=== PATIENT | female | born 1980 | race Two or more races ===

== ENCOUNTER → 2021-08-02 15:08 | Outpatient (CLI) | payer OTHER, SELFPAY ==
--- NOTE | ~2021-08-02 | DEXA_ITS ---
Bone Density Report Name: JOVI VAUGHAN Age: 41 Sex: Female Ethnicity: White Date of : 1980 Indication: osteopenia; monitoring treatment; inflammatory bowel disease; Referring Provider: BestDaina Study: Bone densitometry was performed. Exam Date: August 02, 2021 Accession number: [id number] Bone Density: Region BMD T-score Z-score Classification AP Spine (L1-L4) 0.984 -0.6 -0.3 Normal Femoral Neck (Left) 0.665 -1.7 -1.3 Osteopenia Total Hip (Left) 0.725 -1.8 -1.6 Osteopenia Femoral Neck (Right) 0.733 -1.0 -0.7 Normal Total Hip (Right) 0.795 -1.2 -1.0 Osteopenia Total Hip Mean 0.760 -1.5 -1.3 Osteopenia World Health Organization criteria for BMD impression classify patients as: Normal (T-score at or above -1.0), Osteopenia (T-score between -1.0 and -2.5), or Osteoporosis (T-score at or below -2.5). 10-year Fracture Risk: FRAX not reported because: Premenopausal woman Treated for osteoporosis Previous Exams: Region Exam Age BMD T-score BMD Change BMD Change Date g/cm2 vs Baseline vs Previous AP Spine(L1-L4) 08/02/2021 41 0.984 -0.6 0.311* 0.158* 12/02/2016 36 0.826 -2.0 0.153* 0.113* 07/14/2014 34 0.713 -3.0 0.040* 0.040* 07/13/2012 32 0.673 -3.4 Total Hip(Left) 08/02/2021 41 0.725 -1.8 0.159* 0.074* 12/02/2016 36 0.650 -2.4 0.085* 0.041* 07/14/2014 34 0.609 -2.7 0.044* 0.044* 07/13/2012 32 0.565 -3.1 Total Hip(Right) 08/02/2021 41 0.795 -1.2 0.183* 0.088* 12/02/2016 36 0.707 -1.9 0.095* 0.066* 07/14/2014 34 0.641 -2.5 0.029* 0.029* 07/13/2012 32 0.612 -2.7 *Denotes significance at 95% confidence level, LSC for AP Spine = 0.022 g/cm2, LSC for Total Hip = 0.027 g/cm2 Clinical Information Provided by Patient: Is being treated for osteoporosis Has used the following medications: Fosamax (i.e. alendronate), HRT (i.e. estrogen/hormone therapy), Vitamin D Has the following medical conditions: Inflammatory bowel diseases, TURNERS SYNDROME Patient maximum height was 58.5 Drinks caffeinated beverages Onset of menses at age 15 Premenopausal Number of children 0 Impression: The patient's bone mass is within expected range for age, gender and ethnicity. No significant bone loss was observed. Discussion: PATIENT UNDER TREATM
== END ==
PROVIDERS: Visit Provider Internal Medicine Endocrinology, Diabetes & Metabolism
DX: M81.0 Age-related osteoporosis without current pathological fracture (principal); M85.852 Other specified disorders of bone density and structure, left thigh; M85.851 Other specified disorders of bone density and structure, right thigh
CPT/HCPCS: 77080

== ENCOUNTER 2023-03-29 09:37 | Emergency (ER) | payer OTHER, SELFPAY ==
[2023-03-29 10:01] VITALS: BP 104/77; PULSE 87; RESP 16; TEMP 36; O2SAT 100
--- NOTE | 2023-03-29 10:08 | ED.URI ---
HPI - URI/Sore Throat General Chief Complaint: Upper Respiratory Infection Stated Complaint: COUGH/CONGESTION/RUNNY NOSE/FEVER Source: patient and RN notes reviewed Mode of arrival: ambulatory Limitations: no limitations History of Present Illness HPI Narrative: 42 y/o female presented for c/o headache, sinus pressure/congestion, cough, fever. Onset 4 days. Woke this morning with sore throat. Denies sob, wheezing, n/v/d. Taking multiple otc meds for symptoms. MD elicited complaint: cough Related Data Home Medications Medication Instructions Recorded Confirmed adalimumab 40 mg/0.4 mL 40 mg subcut USEASDIRECTD 03/29/23 03/29/23 subcutaneous pen kit (Humira(CF) Pen) aspirin 81 mg tablet,delayed 81 mg PO DAILY 03/29/23 03/29/23 release cholestyramine (with sugar) 4 gram 1 ea PO DAILY 03/29/23 03/29/23 oral powder cyanocobalamin (vitamin B-12) 1 tablet PO USEASDIRECTD 03/29/23 03/29/23 ergocalciferol (vitamin D2) 1,250 1,250 mcg PO WEEKLY 03/29/23 03/29/23 mcg (50,000 unit) capsule estradiol-norethindrone acet 1 1 tablet PO DAILY 03/29/23 03/29/23 mg-0.5 mg tablet losartan 25 mg tablet 25 mg PO DAILY 03/29/23 03/29/23 metoprolol succinate 25 mg 25 mg PO DAILY 03/29/23 03/29/23 tablet,extended release 24 hr multivitamin with minerals-folic 1 tablet PO DAILY 03/29/23 03/29/23 acid 0.4 mg tablet sertraline 50 mg tablet 50 mg PO DAILY 03/29/23 03/29/23 ursodiol 300 mg capsule 300 mg PO USEASDIRECTD 03/29/23 03/29/23 Allergies Allergy/AdvReac Type Severity Reaction Status Date / Time No Known Allergies Allergy Verified 03/29/23 10:00 Review of Systems Review of Systems: CONSTITUTIONAL: Endorses malaise, fever EYES: Denies visual changes, redness, or discharge ENT: Reports rhinorrhea, congestion, sore throat CARDIOVASCULAR: Denies chest pain, palpitations, edema RESPIRATORY: Reports cough, post nasal drainage. Denies dyspnea GASTROINTESTINAL: Denies abdominal pain, nausea, vomiting, diarrhea SKIN: Denies rash or itching MUSCULOSKELETAL: denies myalgia NEUROLOGIC: Denies headache [facility] Past Medical History Medical History (Updated 03/29/23 @ 10:18 by Gisel Santizo APRN) Crohn disease HTN (hypertension) Boykin syndrome Surgical History Surgical History (Updated 03/29/23 @ 10:16 by Gisle Santizo APRN) History of colon resection Exam Narrative: GENERAL: Mildly ill-appearing, nontoxic no acute distress. HEAD: Normocephalic EYES: PERRLA, conjunctivae clear ENT: Mucous membranes moist. TMs pearly babcock with dull light reflex bilaterally; no tragal tenderness. Oropharynx mildly erythematous without lesions or exudate, no drooling, no hoarseness, no trismus, uvula midline. No tripod positioning, muffled voice, soft palate or pharyngeal wall bulging NECK: Supple. No lymphadenopathy CHEST: Clear to auscultation, breath sounds equal. No wheezing, rhonchi, rales, or stridor. No respiratory distress, speaks in full sentences. HEART: Regular rate and rhythm. No murmur heard. SKIN: Warm, dry, no rash. NEURO: Alert and oriented x3. PSYCH: Normal mood and affect Course Course Emergency Course: Patient is aware of diagnosis, understands and agrees to treatment plan. Anticipatory guidance given. Patient agrees to follow-up as directed and is aware of reasons to seek care at the emergency department. Portions of this record may have been created with voice recognition software Level of Care: Express Care Visit Vital Signs Vital signs: Vital Signs Temperature 96.8 F L 03/29/23 10:01 Pulse Rate 87 03/29/23 10:01 Respiratory Rate 16 03/29/23 10:01 Blood Pressure 104/77 03/29/23 10:01 Pulse Oximetry 100 03/29/23 10:01 Temperature 96.8 F L 03/29/23 10:01 Pulse Rate 87 03/29/23 10:01 Respiratory Rate 16 03/29/23 10:01 Blood Pressure 104/77 03/29/23 10:01 Pulse Oximetry 100 03/29/23 10:01 reviewed MDM - URI/Sore Throat MDM Narrative Medi
[2023-03-29 10:10] VITALS: BP 104/77; PULSE 87; RESP 16; TEMP 36; O2SAT 100
== END 2023-03-29 10:30 | disposition home or self-care (01) ==
PROVIDERS: Emergency Provider Nurse Practitioner Family
DX: U07.1 COVID-19 (principal); K50.90 Crohn's disease, unspecified, without complications; I10 Essential (primary) hypertension; Q96.9 Turner's syndrome, unspecified
CPT/HCPCS: 87081; 87426; 87804; 87880; 99203; C9803; G0463

== ENCOUNTER 2023-05-28 08:03 | Emergency (ER) | payer OTHER, SELFPAY ==
[2023-05-28 08:10] VITALS: BP 106/68; PULSE 97; RESP 16; TEMP 36.6; O2SAT 98
[2023-05-28 08:16] VITALS: BP 106/68; PULSE 97; RESP 16; TEMP 36.6; O2SAT 98
--- NOTE | 2023-05-28 08:34 | ED.URI ---
HPI - URI/Sore Throat General Chief Complaint: Upper Respiratory Infection Stated Complaint: Cough;Headache Time Seen by Provider: 05/28/23 08:20 Source: patient and RN notes reviewed Mode of arrival: ambulatory Limitations: no limitations History of Present Illness HPI Narrative: Patient presents today with 1+ week history of nasal congestion, right ear pressure, cough, sinus pressure, headache. Denies shortness of breath or fever. Currently rates her pain 6/10. She has tried Mucinex, Sudafed, Delsym, Tylenol with some intermittent relief. Patient takes Humira for Crohn's disease. Related Data Home Medications Medication Instructions Recorded Confirmed adalimumab 40 mg/0.4 mL 40 mg subcut USEASDIRECTD 03/29/23 05/28/23 subcutaneous pen kit (Humira(CF) Pen) aspirin 81 mg tablet,delayed 81 mg PO DAILY 03/29/23 05/28/23 release cholestyramine (with sugar) 4 gram 1 ea PO DAILY 03/29/23 05/28/23 oral powder cyanocobalamin (vitamin B-12) 1 tablet PO USEASDIRECTD 03/29/23 05/28/23 ergocalciferol (vitamin D2) 1,250 1,250 mcg PO WEEKLY 03/29/23 05/28/23 mcg (50,000 unit) capsule estradiol-norethindrone acet 1 1 tablet PO DAILY 03/29/23 05/28/23 mg-0.5 mg tablet losartan 25 mg tablet 25 mg PO DAILY 03/29/23 05/28/23 metoprolol succinate 25 mg 25 mg PO DAILY 03/29/23 05/28/23 tablet,extended release 24 hr multivitamin with minerals-folic 1 tablet PO DAILY 03/29/23 05/28/23 acid 0.4 mg tablet sertraline 50 mg tablet 50 mg PO DAILY 03/29/23 05/28/23 ursodiol 300 mg capsule 300 mg PO USEASDIRECTD 03/29/23 05/28/23 Allergies Allergy/AdvReac Type Severity Reaction Status Date / Time No Known Allergies Allergy Verified 05/28/23 08:15 Review of Systems Review of Systems: CONSTITUTIONAL: Denies body aches, fever, chills, or sweats. EYES: Denies visual changes, redness, or discharge. ENT: Denies rhinorrhea, sore throat. + congestion, right ear pressure, sinus pressure CARDIOVASCULAR: Denies chest pain, palpitations, or edema. RESPIRATORY: Denies dyspnea.+ cough GASTROINTESTINAL: Denies abdominal pain, nausea, vomiting, or diarrhea. GENITOURINARY: Denies dysuria or hematuria. SKIN: Denies rash, itching, or wounds. MUSCULOSKELETAL: Denies back pain, joint pain, or myalgia. NEUROLOGIC: Denies numbness, tingling, or weakness.+ headache PSYCH: Denies depression or anxiety. PMFSH Past Medical History Medical History Crohn disease HTN (hypertension) Boykin syndrome Surgical History Surgical History History of colon resection Comments At time of signature, I have reviewed and agree with nursing past medical, surgical, social and family history unless otherwise noted. Please see nursing chart for further information. There is no relevant family history pertinent to the presenting complaint Exam Narrative: GENERAL: Well-appearing, well-nourished, and in no acute distress. HEAD: Normocephalic, atraumatic. EYES: EOMI. No redness or drainage. Conjunctivae normal. ENT: Mucous membranes pink and moist. Nares congested. No rhinorrhea. Bilateral nasal turbinates are erythematous and edematous. Bilateral maxillary sinus tenderness. TMs normal bilaterally. Throat normal. Uvula midline. NECK: Normal AROM. Supple. No lymphadenopathy. CHEST: No respiratory distress. Clear to auscultation. HEART: Regular rate and rhythm. No murmur appreciated. EXTREMITIES: Normal range of motion. No edema. SKIN: Warm, dry, no rash. Capillary refill normal. Normal skin turgor. NEURO: No focal deficits. Alert and oriented x3. Gait steady. PSYCH: Normal affect. No signs of depression or anxiety. Course Course Level of Care: Express Care Visit Vital Signs Vital signs: Vital Signs Temperature 97.8 F 05/28/23 08:10 Pulse Rate 97 05/28/23 08:10 Respiratory Rate 16 05/28/23 08:
== END 2023-05-28 08:41 | disposition home or self-care (01) ==
PROVIDERS: Emergency Provider Nurse Practitioner
DX: J01.00 Acute maxillary sinusitis, unspecified (principal); K50.90 Crohn's disease, unspecified, without complications; I10 Essential (primary) hypertension; Q87.19 Other congenital malformation syndromes predominantly associated with short stature; Z79.82 Long term (current) use of aspirin
CPT/HCPCS: 99213; G0463

== ENCOUNTER 2024-04-01 09:55 | Outpatient (CLI) | payer OTHER, SELFPAY ==
--- NOTE | ~2024-04-01 | CT_ITS ---
CT of the Abdomen and Pelvis: Indication: Crohn's disease Technique: 2.5 mm axial scans were obtained through the abdomen and pelvis following intravenous adm inistration of 100 cc of Omnipaque 350. Dose reduction technique was used on this scan by utilizing a utomated exposure control and iterative reconstruction technique. The dose-length product (DLP) was 3 97.81 mGy-cm. Findings: Scans through the lung bases are unremarkable. There is diffuse hepatic steatosis. The spleen, pancreas, gallbladder, adrenals and kidneys are withi n normal limits. No evidence of aortic aneurysm. No lymphadenopathy. No bowel obstruction or bowel wall thickening. Evidence of prior partial right colectomy with enteroc olonic anastomosis present.. Images through the pelvis were performed. Urinary bladder unremarkable. No pelvic mass seen. No ascit es. Kyphosis of the thoracic spine noted with degenerative disc disease throughout. Impression: No acute abnormalities seen. Postoperative changes of bowel, as above. Diffuse hepatic steatosis. Reviewed, dictated and finalized at location . [employer] Impression: No acute abnormalities seen. Postoperative changes of bowel, as above. Diffuse hepatic steatosis.
[2024-04-01 11:24] LABS: Estimated Glomerular Filt Rate > 60
== END 2024-04-01 09:56 | disposition home or self-care (01) ==
DX: K50.118 Crohn's disease of large intestine with other complication (principal); K76.0 Fatty (change of) liver, not elsewhere classified
CPT/HCPCS: 74177; Q9967

== ENCOUNTER 2024-10-06 15:06 | Outpatient (CLI) | payer OTHER, SELFPAY ==
--- NOTE | ~2024-10-06 | DEXA_ITS ---
Bone Density Report Name: JOVI VAUGHAN Age: 44 Sex: Female Ethnicity: White Date of : 1980 Indication: height loss; Referring Provider: BestDaina Study: Bone densitometry was performed. Exam Date: October 06, 2024 Accession number: [id number] Bone Density: Region BMD T-score Z-score Classification AP Spine(L3, L4, L5) 0.944 Femoral Neck (Left) 0.657 -1.7 -1.3 Osteopenia Total Hip (Left) 0.750 -1.6 -1.3 Osteopenia Femoral Neck (Right) 0.763 -0.8 -0.4 Normal Total Hip (Right) 0.813 -1.1 -0.8 Osteopenia Femoral Neck Mean 0.710 -1.3 -0.9 Osteopenia Total Hip Mean 0.781 -1.3 -1.0 Osteopenia World Health Organization criteria for BMD impression classify patients as: Normal (T-score at or above -1.0), Osteopenia (T-score between -1.0 and -2.5), or Osteoporosis (T-score at or below -2.5). 10-year Fracture Risk: FRAX not reported because: Premenopausal woman Treated for osteoporosis Clinical Information Provided by Patient: Is being treated for osteoporosis Has used the following medications: Fosamax (i.e. alendronate), HRT (i.e. estrogen/hormone therapy) Has the following medical conditions: Crohns, Boykin's Syndrome Patient maximum height was 58 No regular weight bearing exercise Drinks caffeinated beverages Onset of menses at age 15 Premenopausal Number of children 0 Impression: The patient's bone mass is within expected range for age, gender and ethnicity. Discussion: It is important to ask patients whether they are taking their medications and to encourage continued and appropriate compliance with their osteoporosis therapies to reduce fracture risk. It is also important to review their risk factors and encourage appropriate calcium and vitamin D intakes, exercise, fall prevention and other lifestyle measures. Follow-Up: Consider a repeat BMD and Vertebral Fracture Assessment (VFA) exam in 2 years or sooner if medically necessary, to reassess this patient's status. Reported by: JOSELYN on 10/06/2024 3:38:00 PM. Reviewed, dictated and finalized at location A.
--- OUTSIDE RECORDS SUMMARY | 2024-10-06 16:24 | XMS_ITS | Clinical Summary ---
Author Organization [facility] Address [address] [place] [address] Care Team Providers Care Blueprint Processor Name Role Phone Ashish Guerrero MD Unavailable Tammy Andersen MD Unavailable [phone] Daina Jewell MD Unavailable Joan Diehl MD Unavailable [phone] Romaine Louie MD Unavailable Andi Kohler MD Primary Care Provider [phone] Javier Ding MD Unavailable Allergies Active Allergy Reactions Criticality Noted Date Comments Lisinopril Cough Low 09/14/2016 Moxifloxacin Unknown,Other (See comments) Low Palpitations? Anxiety and tachycardia Medications cyanocobalamin (Vitamin B-12) 1,000 mcg sublingual tablet Take 100 mcg by mouth daily. Active cetirizine (ZyrTEC) 10 mg tablet Take 1 tablet (10 mg total) by mouth as needed for allergies Active TURMERIC ORAL Take 1 capsule by mouth daily Active Hyrimoz,CF, Pen 40 mg/0.4 mL pen injector Q 14 days 4 Active cholestyramine (QUESTRAN) 4 gram packet Take 1 packet by mouth 3 (three) times a day with meals Active Lactobacillus acidophilus (PROBIOTIC ORAL) Take by mouth qd Active ursodioL (ACTIGALL) 300 mg capsuleIndicatio ns:Cholestatic hepatitis TAKE 1 CAPSULE 3 TIMES A DAY 270 capsule 3 4 Active atorvastatin (LIPITOR) 40 mg tablet Take 1 tablet (40 mg total) by mouth daily 90 tablet 2 4 025 Active aspirin 81 mg enteric coated tabletIndication s:prevention of thrombosis Take 1 tablet (81 mg total) by mouth daily 90 tablet 3 4 Active losartan (COZAAR) 25 mg tablet Take 0.5 tablets (12.5 mg total) by mouth daily 45 tablet 2 4 Active guaiFENesin ER (MUCINEX) 600 mg 12 hr tabletIndication s:Acute non-recurrent pansinusitis Take 2 tablets (1,200 mg total) by mouth 2 (two) times a day 5 026 Active aspirin (ASPIR-LOW ORAL) 2 Active cholestyramine (QUESTRAN) 4 gram powder MIX 1 SCOOPFUL IN LIQUID AND DRINK TWICE DAILY 4 Active estradiol-noreth indrone (ACTIVELLA) 1-0.5 mg per tablet Take 1 tablet by mouth daily 84 tablet 3 5 Active ergocalciferol (VITAMIN D) 50,000 unit capsuleIndicatio ns:Vitamin D deficiency Take 1 capsule (50,000 Units total) by mouth 2 (two) times a week 24 capsule 3 5 Active sertraline (ZOLOFT) 100 mg tablet Take 1 tablet (100 mg total) by mouth daily 90 tablet 1 5 026 Active metoprolol tartrate (LOPRESSOR) 25 mg immediate release tabletIndication s:Sinus tachycardia,NICM (nonischemic cardiomyopathy) (HCC) Take 1.5 tablets (37.5 mg total) by mouth daily as needed (FOR BREAKTHROUGH PALPITATIONS) 90 tablet 2 5 Active metoprolol XL (TOPROL-XL) 25 mg extended release tabletIndication s:Sinus tachycardia,NICM (nonischemic cardiomyopathy) (HCC) Take 1.5 tablets (37.5 mg total) by mouth daily 135 tablet 3 5 Active Active Problems Problem Noted Date Diagnosed Date Carotid artery dissection 07/26/2021 Thrombosis of internal carotid, left 07/26/2021 HTN (hypertension) 07/24/2021 Ischemic stroke of frontal lobe 07/24/2021 Crohn's disease 07/24/2021 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 Facial droop 07/23/2021 Chronic rhinitis 06/07/2020 Frequent sinus infections 06/07/2020 Sinus tachycardia 04/18/2018 Aortic root dilatation 04/15/2018 Cardiomyopathy 04/15/2018 Osteoporosis 11/07/2016 Assessment & Plan (05/13/2024 6:01 PM ROVING TELLER): Update bone density Will consider restarting bisphosphonate therapy Assessment & Plan (04/24/2023 4:15 PM ROVING TELLER): In the osteopenia range Continue off Fosamax for another year Assessment & Plan (04/25/2022 3:45 PM ROVING TELLER): Stop Fosamax, for 2 year holiday Pt still on HRT Assessment & Plan (08/11/2021 4:28 PM CDT): Continue Fosamax Calcium and vitamin-D intake Weight-bearing exercise Will get results of DEXA done recent Assessment & Plan (01/27/2021 4:44 PM CDT): Continue Fosamax DEXA requested Weight-bearing exercise Assessment & Plan (01/29/2020 4:20 PM CDT): Daily weight bearing exercise Ca and vit D intake discussed Continue Fosamax Assessment & Plan (02/06/2019 3:23 PM CDT): Continue Fosamax DEXA requested Ca and vit D intake discussed Assessment & Plan (01/15/2018 3:22 PM CDT): Continue Fosamax Daily weight bearing exercise Check 24 h urine calcium Assessment & Plan (11/07/2016 9:31 AM CDT): Fosamax Check DEXA Ca and vit D intake discussed Fatigue 11/07/2016 Assessment & Plan (11/07/2016 9:31 AM CDT): Unclear etiology Check TSH, CBC. 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 (06/13/2018): Boykin syndrome Assessment & Plan (05/13/2024 6:02 PM ROVING TELLER): Hypogonadism Continue estrogen therapy Vitamin D deficiency 06/10/2013 Overview (06/13/2018): Vitamin D deficiency Assessment & Plan (05/13/2024 6:01 PM ROVING TELLER): Chronic, stable Update 25 hydroxy vitamin-D level Continue ergocalciferol Assessment & Plan (04/24/2023 4:14 PM ROVING TELLER): Check 25 OH vit D Adjust dose of Ergocalciferol accordingly Assessment & Plan (04/25/2022 3:45 PM ROVING TELLER): Check 25 OH vit D Adjust dose of Ergocalciferol accordingly Assessment & Plan (01/27/2021 4:44 PM CDT): Check 25 OH vit D Adjust dose of Ergocalciferol accordingly Assessment & Plan (01/29/2020 4:19 PM CDT): Continue Ergocalciferol, 50,000 international units weekly Assessment & Plan (02/06/2019 3:23 PM CDT): Check 25 OH vit D Adjust dose of Ergocalciferol accordingly Assessment & Plan (01/15/2018 3:23 PM CDT): Check 25 OH vit D Adjust dose of Ergocalciferol accordingly Assessment & Plan (11/07/2016 9:31 AM CDT): Check vit D Adjust dose of Ergocalciferol as indicated Female hypogonadism syndrome 06/10/2013 Overview (07/28/2016): Female hypogonadism Assessment & Plan (04/24/2023 4:14 PM ROVING TELLER): Continue HRT with Lopreeza Assessment & Plan (04/25/2022 3:24 PM ROVING TELLER): Continue replacement with Activella Assessment & Plan (08/11/2021 4:29 PM CDT): The question is about risk of stroke and HRT in a patient with hypogonadism from Boykin syndrome. I told patient that I will discuss with her neurologist and also will try to do some literature search regarding the available data on this. Assessment & Plan (01/27/2021 4:44 PM CDT): Continue hormone replacement therapy Assessment & Plan (01/29/2020 4:19 PM CDT): Continue HRT replacement Assessment & Plan (02/06/2019 3:22 PM CDT): Continue hormone replacement Assessment & Plan (01/15/2018 3:22 PM CDT): Continue HRT replacement therapy Assessment & Plan (11/07/2016 9:30 AM CDT): Continue HRT Check FSH, LH ( at pt's request ) Eczema 05/01/2013 Hay fever 03/25/2013 Low back pain 03/25/2013 Scoliosis 03/25/2013 Scoliosis 03/25/2013 Overview (05/13/2024): Kyphosis Crohn's disease 12/02/2012 Kyphosis 06/25/2012 Overview (07/27/2016): Kyphosis Resolved Problems Problem Noted Date Diagnosed Date Resolved Date Lab test positive for detect ion of COVID-19 virus 11/24/2022 04/28/2024 Assessment & Plan (11/24/2022 11:45 AM CDT): Discussed eligibility, risk vs benefit of current antiviral therapies, agreeable to proceed w/ outpt paxlovid course- discussed S/Es , RX interactions, rebound CV19 & symptoms warranting discontinuation or F/U. Pt aware to hold atorvastatin and flonase during paxlovid treatment. Counseled on OTC supportive measures, quarantine period, Further f/u as needed regarding any lingering or worsening sx Viral URI with cough 11/23/2022 023 Assessment & Plan (11/23/2022 12:04 PM CDT): Recommend supportive care with humidifier Flonase 2 sprays per nostril daily, nasal saline rinses, Mucinex and fever reducing medications prn For sore throat: can try lozenges and salt water gargles Red flag symptoms requiring immediate follow up reviewed Patellofemoral disorder 08/01/201707/22 Pulmonary hypertension 01/10/201609/09 Pruritus 09/27/2015 08/01/2018 Rash 09/01/2014 08/01/2018 Tympanic membrane perforation 01/02/2014 08/01/2018 Encounters Date Type Department Care Team Description 09/18/2024 Orders Only [facility] Cardiology [address] [place] [address] Advanced Medicine 8th [place] [address] [place] [address] Kris Wade MD 09/17/2024 3:30 PM CDT Office Visit [facility] Cardiology [facility] Medicine 8th [place] [address] [place] [address] Kris Wade MD NICM (nonischemic cardiomyopathy) (HCC) (Primary Dx); Inappropriate sinus tachycardia 07/28/2024 Telephone [place] [facility] [address] [place] [phone] Andi Kohler MD Med Refill 07/25/2024 Orders Only [place] [id number] [facility] [address] [place] [phone] Andi Kohler MD 07/25/2024 Telephone [facility] [address] [facility] [address] [place] [phone] Andi Kohler MD Med Refill from Last 3 Months Immunizations Immunization Administration Dates Next Due DTP 12/08/1985, 2,01/22/1981,10/12,1980 Influenza, Trivalent, Preser vative Free, Intramuscular 01/21/2014,01/23/2013 Influenza, Unspecified 01/23/2024,01/21/2021,04/2017 WeStudy.In (J&J) SARS-CoV-2 Vaccination 06/25/2020 MMR 10/23/1990,09/01/1981 OPV 12/08/1985, 2,01/22/1981,10/12,1980 PPD TEST 03/17/2020,05/04/2017,02/11/2013 Pneumococcal Polysaccharide PPV23 01/30/2013 Td, adsorbed 10/17/1994 Surgical History Surgery Date Site/Laterality Comments BIOPSY LIVER 06/22/2015 N/A COLON SURGERY Medical History Medical History Date Comments Crohn's disease of small int estine with intestinal obstruction (HCC) Exacerbation of Crohn's d isease of small intestine with intestinal obstruction - (Added by TW Conv) History of cardiomyopathy History of Boykin syndrome History of anemia Abnormal liver enzymes Kyphosis Crohn's disease (HCC) Stroke (HCC) Family History Medical History Relation Name Comments Bladder Cancer Father +tob Diabetes Father Hypertension Father Skin cancer Father Thyroid disease Father's Sister Diabetes Maternal Grandmother Glaucoma Maternal Grandmother Hypertension Mother Leukemia Paternal Grandfather Diabetes Paternal Grandmother Breast cancer Neg Hx Relation Name Status Comments Father Father's Sister Maternal Grandmother Mother Paternal Grandfather Paternal Grandmother Social History Tobacco Use Types Packs/Day Years Used Date Smoking Tobacco: Never Smokeless Tobacco: Never Tobacco Cessation:Counseling Given: Not Answered Alcohol Use Standard Drinks/Week Comments Yes 0 (1 standard drink = 0.6 oz pur e alcohol) AUDIT-C Answer Date Recorded Frequency of Alcohol Consumption Monthly or less 08/01/2018 Average Number of Drinks Not on file 019 Frequency of Binge Drinking Not on file 07/22 PHQ-2 Answer Date Recorded PHQ-2 Total Score (If total score is 3 or more points, staff should administer the PHQ-9) 0 04/25/2022 Comments Unknown Sex and Gender Information Value Date Recorded Sex Assigned at Not on file Legal Sex Female 9:20 PM ROVING TELLER Gender Identity Not on file Sexual Orientation Not on file Obstetrics History Last Filed Vital Signs Vital Sign Reading Time Taken Comments Blood Pressure 111/76 09/17/2024 4:03 PM CDT Pulse 73 09/17/2024 4:03 PM CDT Temperature 36.8 C (98.3 F) 12/21/2023 2:47 PM CDT Respiratory Rate 20 05/13/2024 3:23 PM ROVING TELLER Oxygen Saturation 94% 09/17/2024 4:03 PM CDT Inhaled Oxygen Concentration - - Weight 61 kg (134 lb 6.4 oz) 09/17/2024 4:03 PM CDT Height 149.9 cm (4' 11) 09/17/2024 4:03 PM CDT Body Mass Index 27.15 09/17/2024 4:03 PM CDT Plan of Treatment Health Maintenance Due Date Last Done Comments Breast Cancer Screening-Mammogram 1980 DTaP/Tdap/Td Vaccine (6 - Tdap) 10/18/1994 10/17/1994, 12/08/1985, 04/11/1982, Additional history exists Hepatitis B Screening 1998 Pneumococcal vaccine <65 (2 of 2 - PCV) 01/30/2014 01/30/2013 Cervical Cancer Screening 01/21/2019 01/21/2018 Depression Screening 04/25/2023 04/25/2022, 08/11/2021, 01/29/2020, Additional history exists Covid-19 Vaccine ( season) 2023 06/25/2020 Regular Well Visit/Exam 18-64 12/20/2024 12/21/2023, 04/30/2020, 08/01/2018, Additional history exists Hepatitis C Screening Completed 03/19/2017 , 07/02/2014, 01/30/2013 Influenza Vaccine Completed 01/23/2024, , 01/21/2018, Additional history exists HPV Vaccines Aged Out No longer eligi ble based on patient's age to complete this topic Varicella Vaccines Discontinued Procedures Procedure Name Priority Date/Time Associated Diagnosis Comments HM PAP SMEAR WITH HPV Routine 01/21/2018 HEPATITIS C ANTIBODY Routine Gen Lab 03/19/2017 8:59 AM ROVING TELLER from Last 3 Months or Most Recently Relevant to Health Maintenance Results * HM PAP SMEAR WITH HPV (01/21/2018) HM Pap smear Normal us Historical Provider MD HEALTH MAINTENANCE Final Result * Hepatitis C antibody (03/19/2017 8:59 AM ROVING TELLER) Hep C Ab Nonreactive Nonreactive CANELO MAYS Comment: Interpretive Data Positive and greyzone results should be confirmed by a molecular method. If positive or greyzone, a second separately collected sample should be submitted for Hepatitis C Virus RNA. Detection and Quantitation by Real-Time Reverse Bath Attendant-PCR.Current Interpretive data was last revised on 2016. Blood specimen (specimen) 03/19/2017 8:59 AM ROVING TELLER 03/19/2017 11:39 AM ROVING TELLER Ashish Guerrero MD LAB MICROBIOLOGY - GENERAL O RDERABLES Edited Result - Final [facility] Department [place] [address] from Last 3 Months or Most Recently Relevant to Health Maintenance Insurance [facility] [id number] [facility] [id number] [facility] [id number] Care Teams Blueprint Processor Relationship Specialty Start Date End Date Andi Kohler MD [facility] [address] Jordyn CR[address] [place] [address] PCP - General Cardiovascular Disease 03/15/20 Javier Ding MD [address] [place] [address] [address] Jordyn CRUZ [address] [place] [address] PCP - Gastroenterology Gastroenterology 05/23/21 Ashish Guerrero MD Consulting Physician Gastroenterology 08/01/18 Tammy Andersen MD Referring Physician Cardiology 08/01/18 [place] [address] [facility] [address] [place] [address] Consulting Physician Endocrinology Diabetes & Metabolism 08/01/18 Joan Diehl MD [address] [place] [address] Referring Physician Family Medicine 08/01/18 Romaine Louie MD [address] [place] [address] Referring Physician Transplant Hepatology 08/01/18
--- OUTSIDE RECORDS SUMMARY | 2024-10-06 16:24 | XMS_ITS | Referral Summary ---
Author Organization [facility] Address [address] [place] [address] Care Team Providers Care Show Worker Name Role Phone Ashish Guerrero MD Unavailable [phone] Tammy Andersen MD Unavailable Daina Jewell MD Unavailable Joan Diehl MD Unavailable [phone] Romaine Louie MD Unavailable Andi Kohler MD Primary Care Provider [phone] Javier Ding MD Unavailable Encounters Date Type Department Care Team Description 09/18/2024 Orders Only [facility] Cardiology [address] [facility] Advanced Medicine 8th [place] [address] [place] [address] Kris Wade MD 09/17/2024 3:30 PM CDT Office Visit [facility] Cardiology [address] [facility] Medicine 8th [place] [address] [place] [address] Kris Wade MD NICM (nonischemic cardiomyopathy) (HCC) (Primary Dx); Inappropriate sinus tachycardia 07/28/[address] [place] [phone] Andi Kohler MD Med Refill 07/25/2024 Orders Only [address] [place] [phone] Andi Kohler MD 07/25/[address] [phone] Andi Kohler MD Med Refill from Last 3 Months Allergies Active Allergy Reactions Criticality Noted Date [...] 11/07/2016 Assessment & Plan (05/13/2024 6:01 PM BRANCH ACCOUNT EXECUTIVE): Update bone density Will consider restarting bisphosphonate therapy Assessment & Plan (04/24/2023 4:15 PM BRANCH ACCOUNT EXECUTIVE): In the osteopenia range Continue off Fosamax for another year Assessment & Plan (04/25/2022 3:45 PM BRANCH ACCOUNT EXECUTIVE): Stop Fosamax, for 2 year holiday Pt [...] syndrome Assessment & Plan (05/13/2024 6:02 PM BRANCH ACCOUNT EXECUTIVE): Hypogonadism Continue estrogen therapy Vitamin D deficiency 06/10/2013 Overview (06/13/2018): Vitamin D deficiency Assessment & Plan (05/13/2024 6:01 PM BRANCH ACCOUNT EXECUTIVE): Chronic, stable Update 25 hydroxy vitamin-D level Continue ergocalciferol Assessment & Plan (04/24/2023 4:14 PM BRANCH ACCOUNT EXECUTIVE): Check 25 OH vit D Adjust dose of Ergocalciferol accordingly Assessment & Plan (04/25/2022 3:45 PM BRANCH ACCOUNT EXECUTIVE): Check 25 OH vit D Adjust dose [...] hypogonadism Assessment & Plan (04/24/2023 4:14 PM BRANCH ACCOUNT EXECUTIVE): Continue HRT with Lopreeza Assessment & Plan (04/25/2022 3:24 PM BRANCH ACCOUNT EXECUTIVE): Continue replacement with Activella Assessment & Plan [...] 09/01/2014 08/01/2018 Tympanic membrane perforation 01/02/2014 08/01/2018 Immunizations Immunization Administration Dates Next Due DTP 12/08/1985, 2,01/22/1981,10/12,1980 Influenza, Trivalent, Preser vative Free, Intramuscular 01/21/2014,01/23/2013 Influenza, Unspecified 01/23/2024,01/21/2021,04/2017 Salonmeister (J&J) SARS-CoV-2 Vaccination 06/25/2020 MMR 10/23/1990,09/01/1981 OPV 12/08/1985, 2,01/22/1981,10/12,1980 PPD TEST 03/17/2020,05/04/2017,02/11/2013 Pneumococcal Polysaccharide PPV23 01/30/2013 Td, adsorbed 10/17/1994 Social History Tobacco Use Types Packs/Day Years [...] on file Legal Sex Female 9:20 PM BRANCH ACCOUNT EXECUTIVE Gender Identity Not on file Sexual Orientation Not on file Last Filed Vital Signs Vital Sign Reading Time Taken Comments Blood Pressure 111/76 09/17/2024 4:03 PM CDT Pulse 73 09/17/2024 4:03 PM CDT Temperature 36.8 C (98.3 F) 12/21/2023 2:47 PM CDT Respiratory Rate 20 05/13/2024 3:23 PM BRANCH ACCOUNT EXECUTIVE Oxygen Saturation 94% 09/17/2024 4:03 PM CDT Inhaled Oxygen Concentration - - Weight 61 kg (134 lb 6.4 oz) 09/17/2024 4:03 PM CDT Height 149.9 cm (4' 11) 09/17/2024 4:03 PM CDT Body Mass Index 27.15 09/17/2024 4:03 PM CDT Plan of Treatment Not on file Procedures Procedure Name Priority Date/Time Associated Diagnosis Comments PAP SMEAR WITH HPV Routine 01/21/2018 HEPATITIS C ANTIBODY Routine Gen Lab 03/19/2017 8:59 AM BRANCH ACCOUNT EXECUTIVE from Last 3 Months or Most Recently Relevant to Health Maintenance Results * PAP SMEAR WITH HPV (01/21/2018) Pap smear Normal Historical Provider MD HEALTH MAINTENANCE Final Result * Hepatitis C antibody (03/19/2017 8:59 AM BRANCH ACCOUNT EXECUTIVE) Hep C Ab Nonreactive Nonreactive CANELO LENZ Comment: Interpretive Data Positive and greyzone results should be confirmed by a molecular method. If positive or greyzone, a second separately collected sample should be submitted for Hepatitis C Virus RNA. Detection and Quantitation by Real-Time Reverse Fact Checker-PCR.Current Interpretive data was last revised on 2016. Blood specimen (specimen) 03/19/2017 8:59 AM BRANCH ACCOUNT EXECUTIVE 03/19/2017 11:39 AM BRANCH ACCOUNT EXECUTIVE Ashish Guerrero MD LAB MICROBIOLOGY - GENERAL O RDERABLES Edited Result - Final CANELO MAYS [facility] Department [place] [address] from Last 3 Months or Most Recently Relevant to Health Maintenance Insurance [facility] [id number] [facility] [place] [id number] [facility] [id number] [facility] [id number] Care Teams Show Worker Relationship Specialty Start Date End Date Andi Kohler MD [address] [place] [address] [address] Jordyn CR[address]Z [address] [place] [address] PCP - General Cardiovascular Disease 03/15/20 Javier Ding MD [address] [place], [place] [address]DIANA CRUZ [address] [place] [address] PCP - Gastroenterology Gastroenterology 05/23/21 Ashish Guerrero MD Consulting Physician Gastroenterology 08/01/18 Tammy Andersen MD Referring Physician Cardiology 08/01/18 [place] [address] [address] Consulting Physician Endocrinology Diabetes & Metabolism 08/01/18 Joan Diehl MD [address] [place] [id number] Referring Physician Family Medicine 08/01/18 Romaine Louie MD [address] [place] [address] Referring Physician Transplant Hepatology 08/01/18
--- OUTSIDE RECORDS SUMMARY | 2024-10-06 16:25 | XMS_ITS | Clinical Summary ---
Author Organization [facility] Address [address] [place] [address] Care Team Providers Care Chief Jailer Name Role Phone Andi Kohler MD Primary Care Provider [phone] Source Comments [facility],non-owned Affiliates and Associated Physician Practices is amultiple site organization consisting of ambulatory clinics and hospital sitesin [place], [place], [place] and [place]. This disclosure is being madepursuant to the Care Everywhere program and may not contain all information available regarding this patient. Last updated 18.[facility] Allergies Active Allergy Reactions Criticality Noted Date Comments Lisinopril Cough Low 09/14/2016 Moxifloxacin Other Anxiety and tachycardia Medications * Be aware that medications may not be up to date on this document. Alwaysverify current medications with the patient. ESTRADIOL ACETATE PO Active losartan (COZAAR) 12.5 MG TABS Take by mouth once daily Active Adalimumab (HUMIRA PEN SC) Active ursodiol (ACTIGALL) 300 MG capsule Take 300 mg by mouth 3 times daily with meals 2 in the am and 1 in the evening Active DULoxetine (CYMBALTA) 60 MG capsule Take 60 mg by mouth once daily Active alendronate-ch olecalciferol (FOSAMAX PLUS D) 70-2800 MG-UNIT tablet Take 1 tablet by mouth every 7 days before meal Active adalimumab (HUMIRA) 40 MG/0.8ML injection Inject 40 mg subcutaneously every 14 days Active cyanocobalamin (VITAMIN B-12) 1000 MCG tablet Take 1,000 mcg by mouth once daily Active Cholecalcifero l (VITAMIN D3) 1.25 MG (89455 UT) capsule Take 50,000 Units by mouth every 7 days Active Turmeric (QC TUMERIC COMPLEX PO) Take 1 capsule by mouth once daily Active metoprolol tartrate IR (Lopressor) 25 MG tablet Take 25 mg by mouth once daily Active atorvastatin (Lipitor) 40 MG tablet Take 1 (one) tablet by mouth once daily 90 tablet 3 3 Active aspirin EC (Ecotrin) 81 MG tabletIndicati ons:History of CVA (cerebrovascul ar accident) Take 1 (one) tablet by mouth once daily 90 tablet 3 3 Active Active Problems Problem Noted Date Diagnosed Date Carotid artery dissection 07/26/2021 Thrombosis of internal carotid, 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 Osteoporosis 11/07/2016 Overview (08/11/2021): Last Assessment & Plan: Continue Fosamax DEXA requested Weight-bearing exercise Cholestatic hepatitis 07/24/2016 Liver mass 07/11/2016 Hepatic cirrhosis 06/20/2016 Shortness of breath 06/09/2016 Exacerbation of Crohn's disease of small intesti ne 03/10/2015 Abnormal LFTs 11/12/2014 Helicobacter pylori infection 06/19/2014 Anemia 04/10/2014 Depression 10/10/2013 Abdominal pain 10/10/2013 Boykin's syndrome 06/10/2013 Overview (04/13/2021): Boykin syndrome Female hypogonadism syndrome 06/10/2013 Overview (08/11/2021): Female hypogonadism Last Assessment & Plan: Continue hormone replacement therapy Vitamin D deficiency 06/10/2013 Overview (08/11/2021): Vitamin D deficiency Last Assessment & Plan: Check 25 OH vit D Adjust dose of Ergocalciferol accordingly Eczema 05/01/2013 Scoliosis 03/25/2013 Overview (04/13/2021): Kyphosis Hay fever 03/25/2013 Low back pain 03/25/2013 Crohn's disease 12/02/2012 Immunizations Immunization Administration Dates Next Due DTP, HISTORIC VACCINE 12/08/1985, 982,01/22/1981,1980,1980 FLU VACCINE TRI IIV3 SPLIT P F IM (FLUVIRIN) 01/21/2014,01/23/2013 INFLUENZA VACCINE 01/21/2021,01/21/2018 MMR VACCINE 10/23/1990,09/01/1981 PNEUMOCOCCAL PPSV23 01/30/2013 POLIO OPV 12/08/1985, 2,01/22/1981,1980,1980 TD (AGE 7-ADULT) 10/17/1994 Social History Tobacco Use Types Packs/Day Years Used Date Smoking Tobacco: Never Smokeless Tobacco: Never Tobacco Cessation:Counseling Given: No PHQ-2 Answer Date Recorded PHQ2 TOTAL SCORE 0 07/26/2021 Comments No Sex and Gender Information Value Date Recorded Sex Assigned at Not on file Legal Sex Female 5:35 AM [employer] Gender Identity Not on file Sexual Orientation Not on file Last Filed Vital Signs Vital Sign Reading Time Taken Comments Blood Pressure 97/74 02/09/2022 3:22 PM CDT Pulse 101 02/09/2022 3:22 PM CDT Temperature 38 C (100.4 F) 08/11/2021 9:10 AM CDT Respiratory Rate 14 02/09/2022 3:22 PM CDT Oxygen Saturation 96% 08/11/2021 9:10 AM CDT Inhaled Oxygen Concentration - - Weight 62.6 kg (138 lb) 02/09/2022 3:22 PM CDT Height 149.9 cm (4' 11) 08/11/2021 9:10 AM CDT Body Mass Index 27.87 08/11/2021 9:10 AM CDT Plan of Treatment Health Maintenance Due Date Last Done Comments MAMMOGRAM 1980 PAP SMEAR 1980 HIV SCREENING 1995 HEPATITIS C SCREENING 04/23/1998 HEPATITIS B VACCINE (1 of 3 - 19+ 3-dose series) 1999 DTAP/TDAP/TD VACCINES (7 - Td or Tdap) 10/17/2004 10/17/1994, 12/08/1985, 04/11/1982, Additional history exists PNEUMOCOCCAL VACCINE (2 of 2 - PCV) 01/30/2014 01/30/2013 COVID-19 VACCINE (2 - season) 2023 06/25/2020 DEPRESSION SCREENING 04/23/2024 02/09/2022 SCREENING FOR DIABETES 07/26/2024 , 07/26/2021, 07/26/2021, Additional history exists INFLUENZA VACCINE (Season Ended) 2024 01/21/2021, 01/21/2018, 01/21/2014, Additional history exists ZOSTER VACCINE (1 of 2) 2030 HIB VACCINE Aged Out No longer eligi ble based on patient's age to complete this topic HPV VACCINE Aged Out No longer eligi ble based on patient's age to complete this topic MENINGOCOCCAL (Group B) VACCINE SHARED DECISION-MAKING Aged Out No longer eligible based on patient's age to complete this topic MENINGOCOCCAL GROUPS A/C/Y/W VACCINE Aged Out No longer eligible based on patient's age to complete this topic Procedures Procedure Name Priority Date/Time Associated Diagnosis Comments BASIC METABOLIC PANEL (CALCIUM TOTAL) Routine 07/26/2021 2:09 AM CDT Facial droop from Last 3 Months or Most Recently Relevant to Health Maintenance Results * (ABNORMAL) BASIC METABOLIC PANEL (CALCIUM TOTAL) (07/26/2021 2:09 AM CDT) BUN 8 7 - 26 mg/dL 07/26/2021 3:45 AM [facility] Creatinine 0.45(L) 0.56 - 0.96 mg/dL 07/26/2021 3:45 AM [facility] Sodium 142 136 - 145 mmol/L 07/26/2021 3:45 AM [facility] Potassium 3.3(L) 3.5 - 4.5 mmol/L 07/26/2021 3:45 AM [facility] Chloride 105 98 - 107 mmol/L 07/26/2021 3:45 AM [facility] CO2 22 22 - 29 mmol/L 07/26/2021 3:45 AM [facility] Glucose 104 70 - 115 mg/dL 07/26/2021 3:45 AM [facility] Calcium 8.9 8.4 - 10.2 mg/dL 07/26/2021 3:45 AM [facility] Anion Gap 18 8 - 18 07/26/2021 3:45 AM [facility] BUN/Creatinine Ratio 18 7 - 23 07/26/2021 3:45 AM [facility] Osmolality Calculated 293 270 - 300 mOsm/kg 07/26/2021 3:45 AM [facility] eGFR by CKD-EPI >90 >=90 mL/min/1.7 3 m2 07/26/2021 3:45 AM [facility] Blood BLOOD SPECIMEN / Unknown Lab Venipuncture / Unknown 07/26/2021 2:09 AM CDT 07/26/2021 2:58 AM T Bello Laurent MD LAB - CHEMISTRY ORDERABLES Fin al Result [facility] [address] [place] [address], [place] [phone] from Last 3 Months or Most Recently Relevant to Health Maintenance Insurance [employer] Advance Directives * Full Code (Latest Code Status on File) Date Activated Date Inactivated Comments 07/23/2021 10:50 PM 07/26/2021 4:42 PM Care Teams Chief Jailer Relationship Specialty Start Date End Date Andi Kohler MD [address] [place], [place] [address] DR Jordyn CRUZ [address] [place] [id number] [facility] - General 02/08/22
== END 2024-10-06 15:07 | disposition home or self-care (01) ==
LOC: CHSIMG 15:10
PROVIDERS: Visit Provider Internal Medicine Endocrinology, Diabetes & Metabolism
DX: Z78.0 Asymptomatic menopausal state (principal); M85.89 Other specified disorders of bone density and structure, multiple sites
CPT/HCPCS: 77080